=== PATIENT | male | born 1980 | race Caucasian/White ===

== ENCOUNTER 2017-08-30 10:26 | Outpatient (RCR) | payer MEDICAID, SELFPAY | END 2017-09-14 23:59 | LOC: NS 10:26 | PROVIDERS: Family Provider Family Medicine; PCP Family Medicine; Visit Provider Orthopaedic Surgery | DX: E66.01 Morbid (severe) obesity due to excess calories (principal); Z68.43 Body mass index [BMI] 50.0-59.9, adult; Z71.3 Dietary counseling and surveillance | CPT/HCPCS: 97803 ==

== ENCOUNTER 2017-09-27 11:27 | Outpatient (RCR) | payer MEDICAID, SELFPAY ==
[2017-05-26 19:30] VITALS: BMI 29.4
[2017-05-26 23:14] VITALS: BP 149/82
== END 2017-10-12 23:59 ==
LOC: NS 11:27
PROVIDERS: Family Provider Family Medicine; PCP Family Medicine; Visit Provider Orthopaedic Surgery
DX: E66.01 Morbid (severe) obesity due to excess calories (principal); Z68.43 Body mass index [BMI] 50.0-59.9, adult; Z71.3 Dietary counseling and surveillance
CPT/HCPCS: 97803

== ENCOUNTER 2017-10-17 12:22 | Outpatient (RCR) | payer MEDICAID, SELFPAY | END 2017-10-17 12:23 | LOC: NS 12:22 | PROVIDERS: Family Provider Family Medicine; PCP Family Medicine; Visit Provider Orthopaedic Surgery | DX: E66.01 Morbid (severe) obesity due to excess calories (principal); Z68.43 Body mass index [BMI] 50.0-59.9, adult; Z71.3 Dietary counseling and surveillance | CPT/HCPCS: 97803 ==

== ENCOUNTER 2018-03-16 09:00 | Outpatient (RCR) | payer MEDICAID, SELFPAY ==
--- NOTE | 2018-01-27 10:04 | HP.PTEVAL_ITS ---
Patient's Visit Information BRIDGETT CASE is a 37 year old M referred to Physical Therapy by Danna Cardona with a diagnosis of L3-4 Laminectomy with chronic footdrop. Date of Evaluation: 01/27/18 Physical Therapist: Orlin Linares PT, - Visit Plan Frequency: 2x /Week Duration: 4 Weeks Plan: Endurance training on bike or ellipical. Progressive DLS. Flexibility exercise for LEs and lumbar spine. Functional E-stim for anterior tib. Modalities prn. S/P L3-4 laminectomy on 11/25/17. No restrictions per pt. - Subjective Subjective: This 37 y/o male is referred to PT s/p L3-4 laminectomy with chronic foot drop. He had surgery at [facility] by Dr. Cardona on 11/25/17. He was discharged from formal PT in August and had continued pain with activity. This had MRI lumbar.He c/o no pain but continued weakness in the R LE, specifically in the ankle and foot. He does report numbness in the anterior R cox and great toe. He reports no current restrictions from the surgeon. He was recommended an AFO for the R LE but does not have one. Denies b/b incontinence.Patient has h/o lumbar disectomy many yearsa ago. 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 GAIT: forward flexed, R LE toed out, no toe dragging. NEURO: Dermatomes: mild impairment L4 and L5, myotomes diminished DF and GTE, DTRs 2+ except absent R S1. ROM: Lumbar flexion 50%, Extension 75%, B LF 75%. Lumbar ROM non painful. B hip ROM full and non painful. FLEXIBILITY: B Hamstrings min impairment. B Hip flexors mod impairment. MMT: quads/hams 4/5 ,hip flxion 4-/5,ankle 3+/5 right left 4/5 DF - Goals Goal 1:: Pt will demonstrate full lumbar ROM without pain to improve tolerance to self care activities. Goal Time Frame: 4-6 Weeks Goal 2:: Pt will demonstrate B SLS for 30 seconds to improve balance with gait and weight bearing activities. Goal Time Frame: 4-6 Weeks Goal 3:: Pt will demonstrate squat lift of 20# with proper mechanics to improve body mechanics and protect lumbar spine. Goal Time Frame: 4-6 Weeks Goal 4:: Pt will be independent with HEP to sustain gains made in the clinic. Goal Time Frame: 4-6 Weeks Goal 5:: Pt will report minimal limitation with standing and walking activities to improve function and QOL. Goal Time Frame: 4-6 Weeks - Rehabilitation Potential Physical Therapy Diagnosis: Pt is a 37 y/o male s/p L3-4 laminectomy performed on 11/25/[address] Cardona. He is doing well and denies pain. He does note continued weakness and numbness affected at the L4 and L5 levels. On objective exam, he has moderate loss of flexion ROM, weakness affecting ankle DF and great toe extension, and loss of LE flexibility. He is having activity restrictions that include decreased walking and lifting tolerance. This affects his participation with usual housework. Pt will benefit from skilled PT to address the mentioned impairments to maximize functional potential. Rehabilitation Potential: Good - Anticipated Interventions Patient/Client Instruction: Educate patient on: Condition, Plan of Care For the Purpose of:: To increase ROM, To improve ability to perform ADL's, To increase tolerance to activity/condition/position, To improve ability of physical actions for home/community/work/leisure, To increase flexibility/ROM, To improve endurance, To improve balance, To reduce risk of recurrence, To improve health and function, To improve self management Therapeutic Exercise to Include: Strength training, Endurance training, Balance training, Body mechanics, Postural training, Flexibilty training, Gait and locomotor training, Active ROM, Dynamic Lumbar Stabilization For the Purpose of:: To increase ROM, To improve muscle performance and motor function, To increase tolerance to activity/condition/position, To improve ability of physical actions for home/community/work/leisure, To decrease soft tissue restriction, To increase flexibility/ROM, To improve endurance, To improve balance, To improve safety with gait, To reduce risk of recurrence, To improve health and function Functional electric stimulation: Yes TENS: Yes IF ES: Yes Other electric stimulation: Yes Cryotherapy (ice pack, ice massage): Yes Thermo therapy (hot pack): Yes Ultrasound (thermal/non thermal): Yes For the Purpose of:: To increase ROM, To improve muscle performance and motor function, To increase tolerance to activity/condition/position, To improve ability of physical actions for home/community/work/leisure, To improve gait and locomotor functions, To increase flexibility/ROM, To improve safety with gait, To reduce risk of recurrence, To improve health and function Thank you for the opportunity to evaluate your patient. For Medicare and Medicare HMO plans, please review the plan of care and approve it. It will need to be FAXED BACK to us at [phone] for Medicare purposes. Please let me know if there are questions or concerns regarding this plan of care. Physician Signature: Date:
--- NOTE | 2018-07-17 11:08 | HP.PTDCSUM ---
HP - PT D/C Summary It has been my pleasure to treat BRIDGETT CASE under orders from Danna Cardona, for the diagnosis of L3-4 Laminectomy with chronic footdrop for a total of 9 visit(s). Discharge Date: Please see the following information for a summary of their discharge status. - Subjective Subjective: Doing good except right knee is sore. C/O difficulty with lifting leg in car. Tired id in leg and ankle is weak - Pain Right Knee Pain Intensity (Out of 10): 2 - Overall Improvement % Improvement: 70 - Objective Objective/Function: POSTURE: WFL. GAIT: ambulated with improved rhianna heel strike toe off. PROPRIOCEPTION: right leg ankle. LUMBAR ROM: flexion min loss ,extension WFL ,side glides min. MMT: 4/5 quads/hams ,hip 4/5 ankle right 3+/5. SLR - Goals Goal 1:: Pt will demonstrate full lumbar ROM without pain to improve tolerance to self care activities. Goal 2:: Pt will demonstrate B SLS for 30 seconds to improve balance with gait and weight bearing activities. Goal 3:: Pt will demonstrate squat lift of 20# with proper mechanics to improve body mechanics and protect lumbar spine. Goal 4:: Pt will be independent with HEP to sustain gains made in the clinic. Goal 5:: Pt will report minimal limitation with standing and walking activities to improve function and QOL. - Plan Plan: RTD - D/C Information If there are questions or concerns regarding this patient's physical therapy, please feel free to call me at [phone]. Thank you for the referral of this patient. Sincerely, Orlin Linares, PT,
== END 2018-03-16 19:00 | disposition home or self-care (01) ==
LOC: PT 09:00
PROVIDERS: Family Provider Family Medicine; PCP Family Medicine; Visit Provider Orthopaedic Surgery
DX: Z98.890 Other specified postprocedural states (principal); M21.379 Foot drop, unspecified foot
CPT/HCPCS: 97014; 97110; 97162; G0283

== ENCOUNTER → 2018-04-19 20:18 | Outpatient (CLI) | payer MEDICAID, SELFPAY | PROVIDERS: Family Provider Family Medicine; PCP Family Medicine; Visit Provider Clinical Nurse Specialist Acute Care | DX: G47.33 Obstructive sleep apnea (adult) (pediatric) (principal) | CPT/HCPCS: 95811 ==

== ENCOUNTER → 2018-05-26 09:31 | Outpatient (CLI) | payer MEDICAID, SELFPAY ==
[2018-05-26 11:14] LABS: Anion Gap 7 (5-15); BUN 9 mg/dL (7-18); Calcium,Total 9.2 mg/dL (8.5-10.1); Chloride 106 mmol/L (98-107); Cholesterol 206 mg/dL (200); EST Glomerular Filtration Rate 89 mL/min (>60); Est Glom Filt Rate - Afr Amer 107 mL/min (>60); Glucose 98 mg/dL (74-106); High Density Lipoprotein 42 mg/dL; PSA,Total - Annual Screen 0.26 ng/mL (0.00-4.00); Potassium 4.1 mmol/L (3.5-5.1); Sodium Level 142 mmol/L (136-145); Triglycerides 185 mg/dL; Very Low Density Lipoprotein 37 mg/dL (5-40)
== END ==
PROVIDERS: Family Provider Family Medicine; PCP Family Medicine; Referring Provider Family Medicine; Visit Provider Family Medicine
DX: Z00.00 Encounter for general adult medical examination without abnormal findings (principal); E29.1 Testicular hypofunction; E66.9 Obesity, unspecified; Z12.5 Encounter for screening for malignant neoplasm of prostate
CPT/HCPCS: 36415; 80048; 80061; 84153; 84403; G0103

== ENCOUNTER → 2019-06-18 06:06 | Outpatient (CLI) | payer MEDICAID, SELFPAY ==
[2019-06-18 07:26] LABS: Hematocrit 47.1 % (40-54); Hemoglobin 15.2 g/dL (13.0-16.5); Mean Corp Hgb Conc 32.3 g/dL (32-36); Mean Corpuscular Hgb 30.5 pg (27.0-32.0); Mean Corpuscular Volume 94.6 fL (80-94); Mean Platelet Vol. 13.6 fl (6.2-12.0); Platelet Count 157 K/mm3 (150-450); RBC Distribution Width CV 13.2 % (11.6-14.6); RBC Distribution Width SD 45.7 fl (35.1-43.9); Red Blood Count 4.98 M/mm3 (4.6-6.2); White Blood Count 7.2 K/mm3 (4.4-11.0)
[2019-06-18 08:35] LABS: AST(SGOT) 17 U/L (15-37); Alanine Aminotransfer ALT/SGPT 25 U/L (16-61); Albumin, Serum 3.9 g/dL (3.2-5.0); Alkaline Phosphatase 88 U/L (45-117); Anion Gap 10 (5-15); BUN 11 mg/dL (7-18); BUN/Creat Ratio 12.8 RATIO (10-20); Calcium,Total 9.3 mg/dL (8.5-10.1); Chloride 105 mmol/L (98-107); Creatinine, Serum 0.86 mg/dL (0.70-1.30); EST Glomerular Filtration Rate 105 mL/min (>60); Est Glom Filt Rate - Afr Amer 127 mL/min (>60); Ferritin 200 ng/mL (26-388); Glucose 91 mg/dL (74-106); Iron 59 ug/dL (65-175); Magnesium 2.3 mg/dL (1.6-2.6); Potassium 3.5 mmol/L (3.5-5.1); Protein, Total 7.9 g/dL (6.4-8.2); Sodium Level 140 mmol/L (136-145)
[2019-06-18 09:00] LABS: Vitamin B12 1327 pg/mL (211-911)
[2019-06-20 11:56] LABS: Zinc, Plasma or Serum 84 ug/dL (56-134)
== END ==
PROVIDERS: Family Provider Family Medicine; PCP Family Medicine; Referring Provider Surgery; Visit Provider Surgery
DX: E61.7 Deficiency of multiple nutrient elements (principal); K90.9 Intestinal malabsorption, unspecified; E66.01 Morbid (severe) obesity due to excess calories
CPT/HCPCS: 36415; 80053; 82607; 82728; 82746; 83540; 83735; 84630; 85027

== ENCOUNTER 2019-06-21 15:21 | Emergency (ER) | payer MEDICAID, SELFPAY ==
[2019-06-21 15:22] VITALS: BP 156/86; PULSE 74; RESP 16; TEMP 36.3; O2SAT 100; BMI 38.9
--- NOTE | 2019-06-21 15:48 | ED.DCSUM_ITS ---
History of Present Illness Chief Complaint: Flank Pain Informant: Patient - Abdominal Pain/Flank Pain Onset: Days - 4 Context: Gradual Onset Timing: Continuous, Waxes and wanes Location: Right Flank Current Severity: Severe Maximum Severity: Severe Worsened by: Nothing Relieved by: Nothing - Nausea/Vomiting/Emesis GI Symptom: Nausea, Vomiting - Diarrhea/Melena/Hematochezia GI Symptom: Negative for: Diarrhea, Melena, Hematochezia Associated Symptoms: Negative for: Dysuria, Frequency, Hematuria, Urgency Narrative: Patient with gradual onset of right flank pain, started in his low back, moved around to the side, now it is down to his groin and radiating into his scrotum. Never had this before. No history of kidney stones. Has had prior appendectomy and gastric bypass, his last surgery was about 4 months ago. - Past Medical History (1) Obesity Status: Chronic Past Medical History - Allergies and Home Meds Allergies/Adverse Reactions: Allergies No Known Allergies Allergy (Verified 06/27/18 09:46) Primary Care Physician: Vu Pisano MD [STAFF PHYSICIAN] - 1 Week if not improving Surgical History: appendectomy, - - Knee, back, gastric bypass Lives: Spouse/ Significant Other Smoking Status: Never smoker Drugs: None Review of Systems General: Denies: Chills, Fever, Sweats Eyes: Denies: Visual changes - bilaterally, Diplopia ENT: Denies: Rhinorrhea, Sore throat Cardiovascular: Denies: Chest pain, Palpitations Respiratory: Denies: Dyspnea, Cough, Dyspnea on exertion Gastrointestinal: Reports: Abdominal pain, Nausea, Vomiting. Denies: Diarrhea, Melena, Hematochezia Genitourinary: Denies: Dysuria, Hematuria, Frequency Musculoskeletal: Reports: Back pain. Denies: Swelling, Extremity Pain Skin: Denies: Rash, Wounds Neurological: Denies: Headache, Weakness, Numbness Physical Exam Vital Signs/Narrative: Vital Signs Temp Pulse Resp BP Pulse Ox 06/21/19 15:22 97.4 F L 74 16 156/86 H 100 Inital Vital Signs reviewed: Yes General: Well nourished, Well developed, No Acute Distress Head: Normocephalic, Atraumatic Eyes: Perrl, EOMI ENT: Moist mucous membranes, No rhinorrhea Neck: Supple, Nontender Cardiovascular: Regular rate, Regular rhythm, No murmurs Respiratory: No distress, CTA bilaterally, Chest nontender Abdomen: Soft, Nontender, Nondistended, Normal bowel sounds, No masses. Negative for: Pulsatile mass Back: Normal Inspection, CVA tenderness - Right side only. No rash. Extremities: Nontender, No edema Skin: Normal color, No rash, No Trauma Neurological: Alert, Oriented x3, Cranial nerves II-XII grossly intact, Normal Strength, Normal Sensation, Normal Gait Psychological: Normal affect, Normal Mood Diagnostic/Tx/Re-eval Laboratory Results 06/21/19 06/21/19 06/21/19 16:14 16:14 16:14 WBC 11.8 H RBC 5.21 Hgb 15.7 Hct 49.1 MCV 94.2 H MCH 30.1 MCHC 32.0 RDW Std Deviation 45.4 H RDW Coeff of Mirza 13.1 Plt Count 155 MPV 12.7 H Immature Gran % (Auto) 0.400 Neut % (Auto) 83.7 H Lymph % (Auto) 9.4 L [place] % (Auto) 5.9 Eos % (Auto) 0.3 Baso % (Auto) 0.3 Absolute Neuts (auto) 9.8 H Absolute Lymphs (auto) 1.11 Nucleated RBC % 0 Sodium 139 Potassium 3.7 Chloride 104 Carbon Dioxide 26.0 Anion Gap 9 BUN 11 Creatinine 0.95 Estim Creat Clear Calc 116.81 Est GFR (MDRD) Af Amer 113 Est GFR (MDRD) Non-Af 93 BUN/Creatinine Ratio 11.6 Glucose 110 H Calcium 9.8 Urine Color Yellow Urine Clarity Sl. Cloudy Urine pH 7.0 Ur Specific [place] 1.015 Urine Protein 15 H Urine Glucose (UA) Normal Urine Ketones 50 H Urine Occult Blood 50 H Urine Nitrite Negative Urine Bilirubin Negative Urine Urobilinogen Normal Ur Leukocyte Esterase Negative Urine RBC 0-5 SEEN Urine WBC 0 SEEN Ur Squamous Epith Cells 0-5 SEEN Urine Bacteria 0 SEEN Urine Mucus 0 SEEN - Medical Decision Making Patient was treated with Toradol, morphine, Zofran. He feels much better, pain is resolved. With his symptoms down into the scrotum and right groin, he likely has a UVJ stone that is small enough to pass. I do not feel he needs a CT at this time. That might be indicated if he fails expectant management which we discussed at length. He is comfortable with that plan. ED Disposition - Plan for ED Patient: Disposition: Home or Assisted Living Diagnosis: Urolithiasis, Renal colic on right side Instructions: Treating Kidney Stones: Expectant Therapy, KIDNEY STONE w/ Colic Prescriptions: Oxycodone HCl/Acetaminophen [Percocet 5/325] 1 tab PO Q6H PRN PRN 3 Days #12 tab PRN Reason: Pain Prescription Printed Ondansetron [Zofran] 8 mg PO Q8H PRN PRN #12 tab PRN Reason: Nausea Prescription Printed Referrals: Vu Pisano MD [STAFF PHYSICIAN] - 1 Week if not improving
[2019-06-21] MEDS: Ondansetron 4 MG/2 ML Vial IV (16:10)
[2019-06-21] MEDS: Ketorolac 30 MG/ML Syringe IV (16:11)
[2019-06-21] MEDS: Morphine 4 MG/ML Syringe IV (16:12)
[2019-06-21 16:24] LABS: Bacteria 0 SEEN /hpf (None Seen); Mucous, Urine 0 SEEN /hpf (<or=2+); White Blood Cells 0 SEEN /hpf (0-5)
[2019-06-21 16:25] LABS: Absolute Lymphocyte Count 1.11 X10^3/uL (0.83-4.51); Absolute Neutrophil Count 9.8 X10^3/uL (2.0-7.7); Basophil# 0.03 X10^3/uL; Basophil% 0.3 % (0-1); Eosinophil# 0.04 X10^3/uL; Eosinophils% 0.3 % (0-5); Hematocrit 49.1 % (40-54); Hemoglobin 15.7 g/dL (13.0-16.5); Lymphocyte # 1.11 X10^3/ul (4.0); Lymphocyte % 9.4 % (19-41); Mean Corpuscular Hgb 30.1 pg (27.0-32.0); Mean Corpuscular Volume 94.2 fL (80-94); Mean Platelet Vol. 12.7 fl (6.2-12.0); Monocyte# 0.69 X10^3/uL; Monocyte% 5.9 % (0-10); NRBC Flagged by Analyzer 0 % (0-5); Neutrophil # 9.84 X10^3/uL (2.7-7.7); Neutrophil % 83.7 % (47-70); POSITIVE MORPHOLOGY YES; Platelet Count 155 K/mm3 (150-450); RBC Distribution Width CV 13.1 % (11.6-14.6); RBC Distribution Width SD 45.4 fl (35.1-43.9); Red Blood Count 5.21 M/mm3 (4.6-6.2); White Blood Count 11.8 K/mm3 (4.4-11.0)
[2019-06-21 16:26] LABS: Color, Urine Yellow (Yellow); Glucose, Dipstick Normal (Normal); Ketone-Dipstick 50 mg/dl (Negative); Leukocyte Esterase-Dipstick Negative /ul (Negative); Nitrite-Dipstick Negative (Negative); Occult Blood-Urine 50 /ul (Negative); Protein-Dipstick 15 mg/dl (Negative); Specific Gravity, Urine 1.015 (1.002-1.030); Urine Bilirubin Dipstick Negative (Negative); Urine Clarity Sl. Cloudy (Clear); Urine Urobilinogen Normal (Normal)
[2019-06-21 16:33] LABS: Red Blood Cells-Urine 0-5 SEEN /hpf (0-5); Squamous Epithelial Cells - UA 0-5 SEEN /hpf (0-5)
[2019-06-21 16:38] LABS: Anion Gap 9 (5-15); BUN 11 mg/dL (7-18); BUN/Creat Ratio 11.6 RATIO (10-20); Calcium,Total 9.8 mg/dL (8.5-10.1); Chloride 104 mmol/L (98-107); Creatinine, Serum 0.95 mg/dL (0.70-1.30); EST Glomerular Filtration Rate 93 mL/min (>60); Est Glom Filt Rate - Afr Amer 113 mL/min (>60); Estimated Creatinine Clearance 116.81 ml/min; Glucose 110 mg/dL (74-106); Potassium 3.7 mmol/L (3.5-5.1); Sodium Level 139 mmol/L (136-145)
[2019-06-21 16:44] LABS: Differential Indicated SCAN CRITERIA MET
[2019-06-21 17:33] LABS: Differential Comment SCANNED
[2019-06-21 17:35] VITALS: RESP 16
[2019-06-21 18:17] VITALS: BP 143/78; PULSE 63; RESP 18
== END 2019-06-21 18:18 | disposition home or self-care (01) ==
PROVIDERS: Emergency Provider Emergency Medicine; Family Provider Family Medicine; PCP Family Medicine
DX: N20.0 Calculus of kidney (principal); E66.9 Obesity, unspecified; Z98.84 Bariatric surgery status
CPT/HCPCS: 80048; 81001; 85025; 96374; 96375; 99283; A4216; J2405

== ENCOUNTER 2019-06-23 22:54 | Emergency (ER) | payer MEDICAID, SELFPAY ==
[2019-06-23 22:55] VITALS: BP 158/92; PULSE 94; RESP 17; TEMP 37.6; O2SAT 97; BMI 39.4
--- NOTE | 2019-06-23 23:10 | ED.VIS.GEN ---
History of Present Illness Chief Complaint: Flank Pain Detail of Chief Complaint: Pain is returning with for next dose of medicine to Informant: Patient, Significant Other Onset: Days Context: Sudden Onset Timing: Continuous, Waxes and wanes Quality: Pain flank Location: Right Current Severity: Moderate Maximum Severity: Severe Worsened by: Nothing Relieved by: Initially Percocet Associated Symptoms: Nausea Narrative: Patient was seen on June [address] Pope. He was diagnosed with obstructing right ureteral stone. He was discharged with opiate analgesia. He presents because pain is returning prior to time for next dose of opiate analgesia. He does report nausea. He denies fever, chills night sweats. He denies dysuria or hematuria. He does have urgency. He cannot find position of comfort. Prior similar symptoms: Yes Recent Illness/Hospitalization: Yes - Past Medical History (1) Herniated lumbar intervertebral disc Status: Acute (2) Obesity Status: Chronic Past Medical History - Allergies and Home Meds Allergies/Adverse Reactions: Allergies No Known Allergies Allergy (Verified 06/27/18 09:46) Primary Care Physician: Fritz Murray MD [Primary Care Provider] - Surgical History: appendectomy, - - Knee, back, gastric bypass Lives: Spouse/ Significant Other Smoking Status: Never smoker Alcohol: None Drugs: None Review of Systems General: Denies: Chills, Fever, Malaise, Subjective Eyes: Denies: Visual changes - bilaterally, Blurred Vision - bilaterally Cardiovascular: Denies: Chest pain, Palpitations Gastrointestinal: Reports: Nausea. Denies: Abdominal pain, Vomiting, Diarrhea, Constipation, Melena, Hematochezia Genitourinary: Reports: Frequency. Denies: Dysuria, Hematuria Musculoskeletal: Reports: Back pain. Denies: Myalgias, Arthralgias, Neck pain, Swelling, Extremity Pain Skin: Denies: Rash Hematologic: Denies: Easy bruising, Easy bleeding Physical Exam Vital Signs/Narrative: Vital Signs Temp Pulse Resp BP Pulse Ox 06/23/19 22:55 99.7 F H 94 17 158/92 H 97 Inital Vital Signs reviewed: Yes General: Well nourished, Well developed, Obese, No Acute Distress Head: Normocephalic, Atraumatic Eyes: Perrl, EOMI. Negative for: Pale conjunctiva, Scleral icterus ENT: Moist mucous membranes, No rhinorrhea, TM's clear Cardiovascular: Regular rate, Regular rhythm, No murmurs Respiratory: No distress, CTA bilaterally, Chest nontender Abdomen: Soft, Nontender, Nondistended, Normal bowel sounds Back: Nontender, Normal Inspection. Negative for: CVA tenderness Extremities: Nontender, No edema Skin: Normal color, No rash Neurological: Alert, Oriented x3, Cranial nerves II-XII grossly intact, Normal Strength, Normal Sensation Psychological: Normal affect, Normal Mood Diagnostic/Tx/Re-eval - Medical Decision Making He was established. Patient was treated with 4 mg of Zofran IV push, Toradol IV push and morphine IV push. He is not asking for prescription of opiate analgesia. He requesting something to control the pain. Patient was reassessed at 2335. He is pain-free. Will discharge to home. A prescription for NSAIDs was not given since he is status post gastric bypass surgery. ED Disposition - Plan for ED Patient: Disposition: Home or Assisted Living Diagnosis: Obstructing right ureteral stone Instructions: KIDNEY STONE w/ Colic Referrals: Fritz Murray MD [Primary Care Provider] - Vu Pisano MD [STAFF PHYSICIAN] - 3-5 Days if not improving
[2019-06-23] MEDS: Ondansetron 4 MG/2 ML Vial IV (23:21)
[2019-06-23] MEDS: Ketorolac 30 MG/ML Syringe IV (23:24)
[2019-06-23] MEDS: morphine 8 MG/ML Syringe IV (23:26)
[2019-06-23 23:58] VITALS: BP 130/84; PULSE 82; RESP 15; O2SAT 94
== END 2019-06-23 23:58 | disposition home or self-care (01) ==
PROVIDERS: Emergency Provider Emergency Medicine; Family Provider Family Medicine; PCP Family Medicine
DX: N13.2 Hydronephrosis with renal and ureteral calculous obstruction (principal); E66.9 Obesity, unspecified; M51.26 Other intervertebral disc displacement, lumbar region; Z98.84 Bariatric surgery status
CPT/HCPCS: 96374; 96375; 99283; A4216; J2405

== ENCOUNTER → 2019-07-09 11:02 | Outpatient (CLI) | payer MEDICAID, SELFPAY ==
[2019-06-23 22:55] VITALS: BMI 39.4
--- NOTE | 2019-07-09 11:04 | US_ITS ---
STUDY: SCROTUM ULTRASOUND REASON FOR EXAM: Male, 39 years old. Right-sided epididymitis. TECHNIQUE: Ultrasound evaluation of the scrotum was performed with color Doppler and static franklin-scale imaging. COMPARISON: None. FINDINGS: RIGHT TESTICLE INTRATESTICULAR: There is a normal size of the right testicle. The right testicle measures 4.0 x 2.4 x 2.8 cm. There is a homogenous echotexture. There is normal arterial and normal venous vascularity. There is no demonstrated right testicular mass or cyst. EXTRATESTICULAR: The epididymis is normal in size. The epididymis head measures 0.8 x 0.9 x 1.0 cm. There is normal vascularity of the epididymis. There is no demonstrated epididymal cystic structure. There is no demonstrated hydrocele. There is no demonstrated varicocele. There is no demonstrated extratesticular mass or cyst. The right scrotal wall measures 0.6 cm. LEFT TESTICLE INTRATESTICULAR: There is a normal size of the left testicle. The left testicle measures 4.5 x 3.2 x 2.6 cm. There is a homogenous echotexture. There is normal arterial and normal venous vascularity. There is no demonstrated left testicular mass or cyst. EXTRATESTICULAR: The epididymis is normal in size. The epididymis head measures 0.9 x 1.4 x 1.0 cm. There is normal vascularity of the epididymis. There is no demonstrated epididymal cystic structure. There is no demonstrated hydrocele. There is no demonstrated varicocele. There is no demonstrated extratesticular mass or cyst. The left scrotal wall measures 0.7 cm. US/Testicular with Arterial Flow IMPRESSION: Normal bilateral testicular ultrasound. Normal bilateral and symmetrical testicular color flow noted. Electronically Signed: Lu Cordero MD at 1:14 EST , Service support ,
== END ==
PROVIDERS: Family Provider Family Medicine; PCP Family Medicine; Referring Provider Family Medicine; Visit Provider Family Medicine
DX: N45.1 Epididymitis (principal)
CPT/HCPCS: 76870; 93976

== ENCOUNTER → 2019-10-30 08:25 | Outpatient (CLI) | payer MEDICAID, SELFPAY ==
[2019-10-30 09:15] LABS: Hematocrit 45.7 % (40-54); Hemoglobin 14.6 g/dL (13.0-16.5); Mean Corp Hgb Conc 31.9 g/dL (32-36); Mean Corpuscular Hgb 30.2 pg (27.0-32.0); Mean Corpuscular Volume 94.4 fL (80-94); Mean Platelet Vol. 11.9 fl (6.2-12.0); Platelet Count 163 K/mm3 (150-450); RBC Distribution Width CV 13.5 % (11.6-14.6); RBC Distribution Width SD 46.9 fl (35.1-43.9); Red Blood Count 4.84 M/mm3 (4.6-6.2); White Blood Count 7.8 K/mm3 (4.4-11.0)
[2019-10-30 09:42] LABS: Vitamin B12 1026 pg/mL (211-911); Vitamin D,25 Hydroxy 50.4 ng/mL
[2019-10-30 10:26] LABS: AST(SGOT) 21 U/L (15-37); Alanine Aminotransfer ALT/SGPT 31 U/L (16-61); Albumin, Serum 3.9 g/dL (3.2-5.0); Alkaline Phosphatase 85 U/L (45-117); Anion Gap 4 (5-15); BUN 15 mg/dL (7-18); BUN/Creat Ratio 16.7 RATIO (10-20); Calcium,Total 9.2 mg/dL (8.5-10.1); Chloride 108 mmol/L (98-107); Cholesterol 160 mg/dL (200); EST Glomerular Filtration Rate 100 mL/min (>60); Est Glom Filt Rate - Afr Amer 121 mL/min (>60); Ferritin 265 ng/mL (26-388); Globulin 3.8 g/dL (2.2-4.2); Glucose 97 mg/dL (74-106); High Density Lipoprotein 51 mg/dL; Iron 97 ug/dL (65-175); Magnesium 2.1 mg/dL (1.6-2.6); Potassium 4.6 mmol/L (3.5-5.1); Protein, Total 7.7 g/dL (6.4-8.2); Sodium Level 139 mmol/L (136-145); Triglycerides 102 mg/dL; Very Low Density Lipoprotein 20 mg/dL (5-40)
[2019-11-01 11:30] LABS: Zinc, Plasma or Serum 88 ug/dL (56-134)
== END ==
PROVIDERS: PCP Family Medicine; Referring Provider Registered Nurse Nephrology; Visit Provider Registered Nurse Nephrology
DX: E61.1 Iron deficiency (principal); E61.7 Deficiency of multiple nutrient elements; E55.9 Vitamin D deficiency, unspecified; K90.9 Intestinal malabsorption, unspecified; D21.9 Benign neoplasm of connective and other soft tissue, unspecified; E66.01 Morbid (severe) obesity due to excess calories; E78.5 Hyperlipidemia, unspecified
CPT/HCPCS: 36415; 80053; 80061; 82306; 82607; 82728; 82746; 83540; 83735; 84630; 85027

== ENCOUNTER → 2020-06-13 08:34 | Outpatient (CLI) | payer OTHER, SELFPAY ==
[2020-06-13 09:39] LABS: Absolute Lymphocyte Count 2.31 X10^3/uL (0.83-4.51); Absolute Neutrophil Count 4.5 X10^3/uL (2.0-7.7); Basophil# 0.04 X10^3/uL; Basophil% 0.5 % (0-1); Eosinophil# 0.26 X10^3/uL; Eosinophils% 3.3 % (0-5); Hematocrit 45.8 % (40-54); Hemoglobin 14.9 g/dL (13.0-16.5); Lymphocyte # 2.31 X10^3/ul (4.0); Lymphocyte % 29.7 % (19-41); Mean Corp Hgb Conc 32.5 g/dL (32-36); Mean Corpuscular Hgb 30.5 pg (27.0-32.0); Mean Corpuscular Volume 93.7 fL (80-94); Mean Platelet Vol. 11.7 fl (6.2-12.0); NRBC Flagged by Analyzer 0 % (0-5); Neutrophil # 4.45 X10^3/uL (2.7-7.7); Neutrophil % 57.1 % (47-70); Platelet Count 239 K/mm3 (150-450); RBC Distribution Width CV 12.8 % (11.6-14.6); RBC Distribution Width SD 43.6 fl (35.1-43.9); Red Blood Count 4.89 M/mm3 (4.6-6.2); White Blood Count 7.8 K/mm3 (4.4-11.0)
[2020-06-13 10:13] LABS: ALB/GLOB Ratio 0.9 RATIO (0.9-2.4); AST(SGOT) 16 U/L (15-37); Alanine Aminotransfer ALT/SGPT 28 U/L (16-61); Albumin, Serum 3.8 g/dL (3.2-5.0); Alkaline Phosphatase 80 U/L (45-117); Anion Gap 6 (5-15); BUN 12 mg/dL (7-18); BUN/Creat Ratio 13.6 RATIO (10-20); Calcium,Total 9.5 mg/dL (8.5-10.1); Chloride 109 mmol/L (98-107); Creatinine, Serum 0.88 mg/dL (0.70-1.30); EST Glomerular Filtration Rate 101 mL/min (>60); Est Glom Filt Rate - Afr Amer 122 mL/min (>60); Globulin 4.1 g/dL (2.2-4.2); Glucose 96 mg/dL (74-106); Lipase 73 U/L (73-393); Potassium 3.9 mmol/L (3.5-5.1); Protein, Total 7.9 g/dL (6.4-8.2); Sodium Level 140 mmol/L (136-145)
== END ==
PROVIDERS: PCP Family Medicine; Referring Provider Family Medicine; Visit Provider Family Medicine
DX: R10.9 Unspecified abdominal pain (principal)
CPT/HCPCS: 36415; 80053; 83690; 85025

== ENCOUNTER → 2020-06-27 07:59 | Outpatient (CLI) | payer OTHER, MEDICAID, SELFPAY ==
[2020-06-27 09:08] LABS: Hematocrit 44.6 % (40-54); Hemoglobin 14.2 g/dL (13.0-16.5); Mean Corp Hgb Conc 31.8 g/dL (32-36); Mean Corpuscular Hgb 30.5 pg (27.0-32.0); Mean Corpuscular Volume 95.7 fL (80-94); Mean Platelet Vol. 12.1 fl (6.2-12.0); Platelet Count 188 K/mm3 (150-450); RBC Distribution Width SD 48.7 fl (35.1-43.9); Red Blood Count 4.66 M/mm3 (4.6-6.2); White Blood Count 6.9 K/mm3 (4.4-11.0)
[2020-06-27 10:11] LABS: Vitamin B12 951 pg/mL (211-911); Vitamin D,25 Hydroxy 56.9 ng/mL
[2020-06-27 10:31] LABS: ALB/GLOB Ratio 0.9 RATIO (0.9-2.4); AST(SGOT) 17 U/L (15-37); Alanine Aminotransfer ALT/SGPT 25 U/L (16-61); Albumin, Serum 3.7 g/dL (3.2-5.0); Alkaline Phosphatase 76 U/L (45-117); Anion Gap 3 (5-15); BUN 10 mg/dL (7-18); BUN/Creat Ratio 10.3 RATIO (10-20); Calcium,Total 9.6 mg/dL (8.5-10.1); Chloride 108 mmol/L (98-107); Cholesterol 191 mg/dL (200); Creatinine, Serum 0.97 mg/dL (0.70-1.30); EST Glomerular Filtration Rate 90 mL/min (>60); Est Glom Filt Rate - Afr Amer 109 mL/min (>60); Ferritin 377 ng/mL (26-388); Glucose 93 mg/dL (74-106); High Density Lipoprotein 54 mg/dL; Iron 85 ug/dL (65-175); Magnesium 2.3 mg/dL (1.6-2.6); Protein, Total 7.7 g/dL (6.4-8.2); Sodium Level 141 mmol/L (136-145); Triglycerides 116 mg/dL; Very Low Density Lipoprotein 23 mg/dL (5-40)
[2020-07-04 20:08] LABS: Vitamin B1, Thiamine 128.4 nmol/L (66.5-200.0)
[2020-07-04 21:55] LABS: Zinc, Plasma or Serum 70 ug/dL (56-134)
== END ==
PROVIDERS: PCP Family Medicine; Referring Provider Registered Nurse Nephrology; Visit Provider Registered Nurse Nephrology
DX: E61.1 Iron deficiency (principal); K90.9 Intestinal malabsorption, unspecified; E61.7 Deficiency of multiple nutrient elements; E87.6 Hypokalemia; E61.2 Magnesium deficiency; E66.01 Morbid (severe) obesity due to excess calories; Z68.42 Body mass index [BMI] 45.0-49.9, adult
CPT/HCPCS: 36415; 80053; 80061; 82306; 82607; 82728; 82746; 83540; 83735; 84425; 84630; 85027

== ENCOUNTER → 2020-11-21 10:07 | Outpatient (CLI) | payer OTHER, MEDICAID, SELFPAY ==
--- NOTE | 2020-11-21 10:11 | RAD_ITS ---
STUDY: X-RAY - LEFT KNEE REASON FOR EXAM: Left knee pain for about 3 weeks, twisting injury yesterday. TECHNIQUE: 4 view(s) of the knee. COMPARISON: None. FINDINGS: There are postoperative changes of the distal femur proximal tibia from anterior cruciate ligament reconstruction. Normal proximal tibiofibular articulation. Normal medial femorotibial compartment. Normal lateral femorotibial compartment. Normal patellofemoral articulation. There is an intra-articular body in the intercondylar notch. RAD/Knee 4 or More Views IMPRESSION: Intra-articular body in the intercondylar notch. Postoperative changes from anterior cruciate ligament reconstruction. Electronically Signed: Natan Singh MD at 10:57 EDT Tel , Service support ,
== END ==
PROVIDERS: PCP Family Medicine; Referring Provider Family Medicine; Visit Provider Family Medicine
DX: M25.562 Pain in left knee (principal)
CPT/HCPCS: 73564

== ENCOUNTER → 2020-12-24 11:05 | Outpatient (CLI) | payer OTHER, MEDICAID, SELFPAY ==
[2020-12-12 08:33] VITALS: BMI 39.4
--- NOTE | 2020-12-24 11:06 | MRI_ITS ---
STUDY: MRI LEFT KNEE REASON FOR EXAM: Medial knee pain for 2 months, no specific injury, ACL repair in 1995. TECHNIQUE: Standardized fat and water weighted pulse sequences were obtained in all 3 orthogonal planes. COMPARISON: Radiographs 11/21/2020. FINDINGS: There is a horizontal tear of the posterior horn/posterior body of the medial meniscus (proton-density sagittal images 9-14; proton-density coronal images 13, 14). There is a healed osteochondral lesion of the medial femoral condyle (proton-density coronal images 14-17). There is slight subchondral bone edema of the medial tibial plateau, a stress phenomenon. There is mild periligamentous inflammation of the medial collateral ligament (T2 coronal image 15). Normal distal semimembranosus, gracilis and semitendinosus tendons. Normal lateral meniscus. Normal hyaline cartilage of the lateral femorotibial compartment. Normal lateral femoral condyle and tibial plateau. Normal proximal tibiofibular articulation. Normal lateral collateral (fibular) ligament. Normal popliteus tendon. Normal biceps femoris tendon. The anterior cruciate ligament graft is intact (T2 sagittal image 14). Normal posterior cruciate ligament (PCL). Normal congruent patellofemoral articulation. There is intermediate grade chondromalacia of the patellofemoral compartment (T2 sagittal image 15). Normal medial and lateral patellar retinaculum. Normal visualized quadriceps tendon. There are postoperative changes of the patellar tendon. There is postoperative scarring in Hoffa''s fat pad. There is no joint effusion. There is an intra-articular body anterior to the posterior cruciate ligament (proton-density sagittal image 21; T2 axial image 20) measuring 0.8 cm in greatest dimension. There is a popliteal cyst measuring 5.7 cm in length (T2 sagittal images 5-8). There are postoperative changes of the distal femur and proximal tibia from anterior cruciate ligament reconstruction. MRI/Lower Ext Joint Only (Routine) IMPRESSION: Medial meniscal tear. Intact anterior cruciate ligament graft. Chondromalacia of the patellofemoral compartment. Mild periligamentous inflammation of the medial collateral ligament. Intra-articular body in the posterior intercondylar notch. Healed osteochondral lesion of the medial femoral condyle. Popliteal cyst. Electronically Signed: Natan Singh MD at 12:21 EDT Tel , Service support ,
== END ==
PROVIDERS: PCP Family Medicine; Referring Provider Orthopaedic Surgery; Visit Provider Orthopaedic Surgery
DX: M25.562 Pain in left knee (principal)
CPT/HCPCS: 73721

== ENCOUNTER 2021-11-30 21:11 | Outpatient (CLI) | payer OTHER, MEDICAID, SELFPAY | END 2021-11-30 23:59 | disposition home or self-care (01) | PROVIDERS: PCP Family Medicine; Referring Provider Nurse Practitioner Acute Care; Visit Provider Nurse Practitioner Acute Care | DX: G47.33 Obstructive sleep apnea (adult) (pediatric) (principal) | CPT/HCPCS: 95811 ==

== ENCOUNTER 2021-12-01 14:51 | Outpatient (CLI) | payer OTHER, MEDICAID, SELFPAY ==
[2021-12-01 16:36] LABS: Absolute Lymphocyte Count 2.85 X10^3/uL (0.83-4.51); Absolute Neutrophil Count 5.2 X10^3/uL (2.0-7.7); Basophil# 0.05 X10^3/uL; Basophil% 0.5 % (0-1); Eosinophil# 0.44 X10^3/uL; Eosinophils% 4.7 % (0-5); Hematocrit 47.5 % (40-54); Hemoglobin 15.5 g/dL (13.0-16.5); Lymphocyte # 2.85 X10^3/ul (0.83-4.51); Lymphocyte % 30.2 % (19-41); Mean Corp Hgb Conc 32.6 g/dL (32-36); Mean Corpuscular Hgb 30.6 pg (27.0-32.0); Mean Corpuscular Volume 93.9 fL (80-94); Mean Platelet Vol. 12.6 fl (6.2-12.0); Monocyte# 0.86 X10^3/uL; Monocyte% 9.1 % (0-10); NRBC Flagged by Analyzer 0 % (0-5); Neutrophil # 5.21 X10^3/uL (2.7-7.7); Neutrophil % 55.2 % (47-70); Platelet Count 186 K/mm3 (150-450); RBC Distribution Width CV 13.4 % (11.6-14.6); RBC Distribution Width SD 46.4 fl (35.1-43.9); Red Blood Count 5.06 M/mm3 (4.6-6.2); White Blood Count 9.4 K/mm3 (4.4-11.0)
[2021-12-01 16:52] LABS: Hemoglobin A1c 5.3 % (3.8-5.6)
[2021-12-01 16:55] LABS: AST(SGOT) 25 U/L (15-37); Alanine Aminotransfer ALT/SGPT 37 U/L (16-61); Albumin, Serum 4.2 g/dL (3.2-5.0); Alkaline Phosphatase 96 U/L (45-117); Anion Gap 6 (5-15); BUN 15 mg/dL (7-18); BUN/Creat Ratio 15.4 RATIO (10-20); Calcium,Total 9.5 mg/dL (8.5-10.1); Chloride 105 mmol/L (98-107); Cholesterol 207 mg/dL (200); Creatinine, Serum 0.97 mg/dL (0.70-1.30); EST Glomerular Filtration Rate 90 mL/min (>60); Est Glom Filt Rate - Afr Amer 108 mL/min (>60); Glucose 96 mg/dL (74-106); High Density Lipoprotein 46 mg/dL; Potassium 4.3 mmol/L (3.5-5.1); Protein, Total 8.2 g/dL (6.4-8.2); Sodium Level 138 mmol/L (136-145); Thyroid Stim Hormone (TSH) 1.82 uIU/mL (0.358-3.74); Triglycerides 153 mg/dL; Very Low Density Lipoprotein 31 mg/dL (5-40)
== END 2021-12-01 23:59 | disposition home or self-care (01) ==
LOC: BIMLAB 14:52
PROVIDERS: PCP Nurse Practitioner Family; Referring Provider Nurse Practitioner Family; Visit Provider Nurse Practitioner Family
DX: Z00.00 Encounter for general adult medical examination without abnormal findings (principal)
CPT/HCPCS: 36415; 80053; 80061; 83036; 84443; 85025

== ENCOUNTER → 2022-01-08 | Outpatient (CLI) | payer OTHER, MEDICAID, SELFPAY ==
[2022-01-08 15:17] LABS: Red Blood Cells-Urine 0 SEEN /hpf (0-5); White Blood Cells 0 SEEN /hpf (0-5)
[2022-01-08 16:49] LABS: Color, Urine Yellow (Yellow); Glucose, Dipstick Normal (Normal); Ketone-Dipstick Negative (Negative); Leukocyte Esterase-Dipstick Negative /ul (Negative); Nitrite-Dipstick Negative (Negative); Occult Blood-Urine Negative /ul (Negative); Protein-Dipstick Negative (Negative); Urine Bilirubin Dipstick Negative (Negative); Urine Clarity Clear (Clear); Urine Urobilinogen 1 mg/dl (Normal)
[2022-01-08 17:09] LABS: Bacteria RARE /hpf (None Seen); Mucous, Urine 1+ /hpf (<or=2+); Squamous Epithelial Cells - UA 0-5 SEEN /hpf (0-5)
[2022-01-08 20:15] LABS: Chlamydia Trachomatis by PCR Negative (Negative); Neisserai gonorrhoeae by PCR Negative (Negative); Probe Check PASS; Sample Adequacy Control PASS; Specimen Processing Control PASS
== END | disposition home or self-care (01) ==
PROVIDERS: PCP Nurse Practitioner Family; Referring Provider Nurse Practitioner Family; Visit Provider Nurse Practitioner Family
DX: N45.1 Epididymitis (principal)
CPT/HCPCS: 81001; 87086; 87491; 87591

== ENCOUNTER → 2022-11-05 | Outpatient (CLI) | payer MEDICAID, OTHER, SELFPAY ==
--- NOTE | 2022-11-05 09:39 | RAD_ITS ---
STUDY: X-RAY - PELVIS AND RIGHT HIP REASON FOR EXAM: Male, 42 years old. right hip pain TECHNIQUE: 3 views of the pelvis and hip. COMPARISON: None. FINDINGS: There is a non-specific bowel gas pattern. Normal visualized soft tissue structures. Normal bilateral iliac wings, sacroiliac joints and visualized sacrum. Normal bilateral superior and inferior pubic rami. Normal pubic symphysis. Normal bilateral ischial tuberosities. Normal visualized femoral head. Normal acetabulum. Normal hip joint. RAD/HIP, UNI W/ Pelvis 2-3 Views IMPRESSION: Normal x-ray examination of the pelvis and hip. Electronically Signed: Darnell Levy MD at 17:32 EDT ,
== END | disposition home or self-care (01) ==
LOC: MTRAD 09:39
PROVIDERS: PCP Nurse Practitioner Family; Referring Provider Nurse Practitioner Family; Visit Provider Nurse Practitioner Family
DX: M25.551 Pain in right hip (principal)
CPT/HCPCS: 73502

== ENCOUNTER → 2022-11-30 | Outpatient (CLI) | payer OTHER, MEDICAID, SELFPAY ==
[2022-11-30 12:45] LABS: Basophil# 0.04 X10^3/uL; Basophil% 0.6 % (0-1); Eosinophil# 0.41 X10^3/uL; Eosinophils% 5.8 % (0-5); Hematocrit 46.8 % (40-54); Hemoglobin 15.2 g/dL (13.0-16.5); Lymphocyte % 26.7 % (19-41); Mean Corp Hgb Conc 32.5 g/dL (32-36); Mean Corpuscular Hgb 30.6 pg (27.0-32.0); Mean Corpuscular Volume 94.4 fL (80-94); Mean Platelet Vol. 12.4 fl (6.2-12.0); Monocyte# 0.76 X10^3/uL; Monocyte% 10.7 % (0-10); NRBC Flagged by Analyzer 0 % (0-5); Neutrophil # 3.97 X10^3/uL (2.7-7.7); Neutrophil % 55.8 % (47-70); Platelet Count 171 K/mm3 (150-450); RBC Distribution Width CV 13.5 % (11.6-14.6); RBC Distribution Width SD 46.8 fl (35.1-43.9); Red Blood Count 4.96 M/mm3 (4.6-6.2); White Blood Count 7.1 K/mm3 (4.4-11.0)
[2022-11-30 13:08] LABS: Hemoglobin A1c 5.3 % (3.8-5.6)
[2022-11-30 13:18] LABS: Vitamin B12 1085 pg/mL (211-911); Vitamin D,25 Hydroxy 30.6 ng/mL
[2022-11-30 13:33] LABS: ALB/GLOB Ratio 1.1 RATIO (0.9-2.4); AST(SGOT) 19 U/L (15-37); Alanine Aminotransfer ALT/SGPT 32 U/L (16-61); Albumin, Serum 4.1 g/dL (3.2-5.0); Alkaline Phosphatase 97 U/L (45-117); Anion Gap 3 (5-15); BUN 10 mg/dL (7-18); BUN/Creat Ratio 11.4 RATIO (10-20); Calcium,Total 9.4 mg/dL (8.5-10.1); Chloride 108 mmol/L (98-107); Cholesterol 204 mg/dL (200); Creatinine, Serum 0.88 mg/dL (0.70-1.30); EST Glomerular Filtration Rate 101 mL/min (>60); Est Glom Filt Rate - Afr Amer 122 mL/min (>60); Ferritin 320 ng/mL (26-388); Globulin 3.7 g/dL (2.2-4.2); Glucose 98 mg/dL (74-106); High Density Lipoprotein 47 mg/dL; Iron 98 ug/dL (65-175); Iron Binding Capacity,Total 351 ug/dL (250-450); PERCENT IRON SATURATION 27.9 % (15.0-55.0); Potassium 4.1 mmol/L (3.5-5.1); Protein, Total 7.8 g/dL (6.4-8.2); Sodium Level 137 mmol/L (136-145); Thyroid Stim Hormone (TSH) 1.46 uIU/mL (0.358-3.74); Triglycerides 149 mg/dL; Very Low Density Lipoprotein 30 mg/dL (5-40)
[2022-12-04 18:07] LABS: Testosterone, % Free 1.75 % (1.50-4.20); Testosterone, Free 5.43 ng/dL (5.00-21.00); Testosterone, Total 310 ng/dL (264-916)
== END | disposition home or self-care (01) ==
LOC: BIMLAB 08:32
PROVIDERS: PCP Nurse Practitioner Family; Referring Provider Nurse Practitioner Family; Visit Provider Nurse Practitioner Family
DX: Z00.00 Encounter for general adult medical examination without abnormal findings (principal); E29.1 Testicular hypofunction; E56.9 Vitamin deficiency, unspecified; D50.9 Iron deficiency anemia, unspecified
CPT/HCPCS: 36415; 80053; 80061; 82306; 82607; 82728; 83036; 83540; 83550; 84402; 84403; 84443; 85025

== ENCOUNTER 2023-01-20 07:43 | Day surgery (SDC) | payer OTHER, MEDICAID, SELFPAY ==
--- NOTE | 2023-01-20 | GASB_PTH ---
PATIENT: BRIDGETT CASE LOC: EN U#:[id number] AGE/SX: 42/M ROOM: RE01/20/[address]: Dr. Long Maria MD : 1980 BED: DIS: 01/20/2023 SPEC #: [id number] RECD: 01/20/23 10:50 STATUS: ROBERTA SAMUEL #: [id number] STEPHEN: 01/20/23 00:[address]: Long Maria DEPT: SURGICAL PATHOLOGY RECD BY: Isiah Madden ENTERED: 01/20/23 10:50 SP TYPE: Gastric Bx OTHR DR: Terrance Brown, COOK DESSERT-C Tissues: Gastric mucous membrane Procedures: Surgery Specimen Level IV HEADER OPERATION: Colonoscopy, EGD ([facility]) PRE-OP DIAGNOSIS: Heartburn, GERD, family history colon cancer TISSUE SUBMITTED: Distal gastric pouch biopsy for histology and H. pylori MICROSCOPIC DIAGNOSIS Distal gastric pouch, biopsy: Mild gastritis. See microscopic description and comment. SJ:geovani 01/21/2023 COMMENT The results of immunohistochemistry for Helicobacter pylori will be reported separately ([id number]). MICROSCOPIC DESCRIPTION Slides are reviewed. The specimen shows fragments of gastric mucosa with chronic inflammatory cell infiltrates in the lamina propria consisting of lymphocytes and plasma cells, consistent with mild chronic gastritis. GROSS DESCRIPTION Received in fixative is one container labeled with the patient's name and designated distal gastric pouch biopsy. The specimen consists of one irregular fragment of light peter soft tissue that measures 0.4 x 0.4 x 0.1 cm. The specimen is totally submitted in one cassette. / FIDE:geovani 01/20/2023 TC: CPT: 65797
[2023-01-20] MEDS: Lactated Ringers 1,000 ML 15 ML IV (07:55)
[2023-01-20 08:23] VITALS: BP 119/78; PULSE 69; RESP 16; TEMP 36.7; O2SAT 97; BMI 38.9
--- NOTE | 2023-01-20 09:00 | IMM_PTH ---
PATIENT: BRIDGETT CASE LOC: EN U#:[id number] AGE/SX: 42/M ROOM: RE01/20/[address]: Dr. Long Maria MD : 1980 BED: DIS: 01/20/2023 SPEC #: [id number] RECD: 01/20/23 12:48 STATUS: ROBERTA REQ #: [id number] STEPHEN: 01/20/23 09:[address]: Long Maria DEPT: IMMUNOHISTOCHEMISTRY RECD BY: Nara Gould ENTERED: 01/20/23 12:49 SP TYPE: IMMUNO OTHR DR: Terrance Brown, RAISIN SEPARATOR OPERATOR-C Tissues: Stomach, NOS Procedures: H Pylori (initial) PHYSICIAN & INSTITUTION [place] [address] SPECIMEN INFORMATION: Tissue Source: Distal gastric pouch Clinical Info: Heartburn, GERD Specimen Number: [id number] CPT code: 97883 METHODOLOGY: Deparaffinized sections of prefer/formalin-fixed tissue or PAP/DQ stained slides are incubated with monoclonal/polyclonal antibodies/oligonucleotide probes. Localization is made via biotin free immunoperoxidase method. Appropriate controls are performed and reacted as expected. Results on target cell population are indicated in the following table: RESULTS: ANTIBODY / CLONE RESULT H Pylori (polyclonal) negative These tests were developed and their performance characteristics determined by [facility]. They may not have been cleared or approved by the [place]. Food and Drug Administration. The FDA has determined that such clearance or approval is not necessary. The above immunohistochemical/dualISH markers are ordered and reviewed by the Pathologist. INTERPRETATION: Distal gastric pouch, biopsy: Negative for Helicobacter pylori organisms. FIDE:geovani 01/21/2023
--- NOTE | 2023-01-20 09:02 | HP.PCM_ITS ---
History and Physical Date of Admission: 01/20/23 Date of Service:? 12/15/22 MR#: [id number] Acct: [id number] Name:BRIDGETT JACOME Rep #: [id number] : 1980 ? ? Provider: Dr. Long Maria MD Age/Sex:? 42/M ? ? Location: [facility] Status: Signed Intake Vital Signs ? 12/16/2307:32 Height 6 ft 1 in Weight: 309 lb 4 oz BMI 40.8 BP 127/85 H Blood Pressure Location Rt brachial Position Sitting Respiration 18 Pulse 78 Pulse Source Monitor Temp 98.1 F Temp Source Temporal Pulse Oximetry (%) 97 Oxygen Delivery Method room air Intake Visit Reasons:?C-Scope Consult Family HX Chief Complaint: yearly check up Allergies No Known Allergies Allergy (Verified 12/15/22 08:35) Medications calcium citrate 200 mg (950 mg) tablet 200 mg PO TID 12/12/20 [History Confirmed 12/15/22] cholecalciferol (vitamin D3) 50 mcg (2,000 unit) capsule 50 mcg PO DAILY 12/12/20 [History Confirmed 12/15/22] ferrous sulfate 325 mg (65 mg iron) tablet (Feosol) 325 mg PO DAILY 12/12/20 [History Confirmed 12/15/22] mecobalamin (vitamin B12) 1,000 mcg chewable tablet 1,000 mcg PO DAILY 12/12/20 [History Confirmed 12/15/22] multivitamin (Multiple Vitamins tablet) 1 tab PO DAILY 01/05/21 [History Confirmed 12/15/22] vitamin A 2,400 mcg capsule 2,400 mcg PO DAILY 12/01/21 [History Confirmed 12/15/22] PFSH Medical History? Acute bronchitis, unspecified Acute frontal sinusitis Chronic back pain Chronic right hip pain Encounter for preventative adult health care examination Encounter for preventative adult health care examination History of MRSA infection Hypertension Hypogonadism in male Left epididymitis Vitamin deficiency Surgical History? H/O discectomy History of appendectomy Hx of gastric bypass L3/L4 Laminectomy Family History? Mother Mitral valve prolapseOther Colon cancer Social History? Smoking Status:? Never smoker alcohol intake:? never substance use type:? does not use HPI HPI HPI: Patient is a 42-year-old male who presents for need to schedule screening colonoscopy secondary to family history.? They are referred for surgical consultation from Terrance Brown NP.? Patient has not had prior colonoscopy.? Patient has no personal history of colon cancer, inflammatory bowel disease, or diverticulitis. They describe their bowel habits as normal.? They have approximately 1 bowel movement per every 2 days and spend roughly less than 10 minutes on the toilet without significant straining.? They have not noticed recent bleeding or dark stools.? They do not regularly take fiber supplements, but they do consume significant fiber in their regular diet. Patient has a rather remarkable family history of colon cancer in his father, grandfather, and paternal uncle.? He reports that his father was diagnosed in his mid 60s, but that his grandfather and uncle were both diagnosed in their 70s.? He notes that they all had surgery, but the other details regarding these diagnoses are unclear.? There is no other history of inflammatory bowel disease or diverticulitis familially- speaking? ? The patient's weight is not stable and he estimates that he has gained approximately 30 pounds over the last 2 years.? He attributes this weight gain to decreased activity on the account of back pain.? He has a history of Jason-en-Y gastric bypass in 2019 and lost a total of 140 pounds following that surgery so he is at a net of 110 pounds down from his heaviest weight. The patient is not prescribed anticoagulants/blood thinners. Relevant prior abdominal surgical history includes: Open appendectomy in addition to the Jason-en-Y gastric bypass noted from 2019 Patient does also have a significant history of GERD/heartburn.? He states that he experiences an achy abdominal discomfort shortly after taking his vitamins, but reports that this is better now.? He reports that this pain occurs in his upper abdomen.? He also notes that sometimes he will have frequent nighttime awakenings with pain and acid.? He currently uses Tums and Nexium only as needed.? He denies any coughing up of blood.? He denies any significant or routine use of NSAIDs. Exam Const General: cooperative, healthy appearing, comfortable and no acute distress Orientation: alert, awake and oriented x3 Resp Effort & Inspection: normal respiratory effort GI Other: Obese, well-healed port site incisions as well as a right lower quadrant transverse incision.? No evidence of hernia.? Nontender to palpation x4 quadrants, but mild tenderness with palpation of the epigastric area.? No hepatosplenomegaly Assessment and Plan Assessment and Plan (1) Family history of colon cancer: ?Status:?Acute ?Comment: This is a 42-year-old male who presents for evaluation and possible screening colonoscopy given extensive family history of colon cancer in father, grandfather, and paternal uncle.? Overall he denies any current symptoms that are alarming for his own GI habits, but given his reports of epigastric abdominal discomfort and nighttime awakenings with acid reflux, I believe it is reasonable to pursue a diagnostic EGD and then given a MAC sedation for this procedure and the fact that he is within 2 years of the recommended age for starting colon screening, believe that it would be reasonable to perform a concurrent colonoscopy. ?Plan: Plan will be to complete colonoscopy on first mutually agreeable date under local MAC.? Pre-procedure prep (2-day) discussed and paper instructions provided.? Patient is also made aware that he will need to have a medical delivery driver with him the day of the procedure. (2) Heartburn symptom: ?Status:?Acute ?Comment: Patient describes rather frequent heartburn (multiple times per week) which seems to be fluctuating in intensity.? He is status post gastric bypass 4 years ago and has not had a subsequent EGD.? Fortunately he has no history of tobacco use or excessive NSAID use.? Still, given the persistence of his symptoms and his altered anatomy, I find it reasonable to pursue a diagnostic esophagogastroduodenoscopy.? I have encouraged him to begin routine use of his PPI which he was previously taking as needed. ?Plan: ? Diagnostic EGD under local MAC (3) GERD (gastroesophageal reflux disease): ?Status:?Acute ?Comment: Patient remarks of frequent nighttime awakenings?sometimes as often as once nightly certain weeks.? Given his reports of heartburn symptoms as well, recommend diagnostic EGD as above ?Plan: Diagnostic EGD as above I have examined the patient and the H&P has been reviewed. There are no clinical changes since date of exam. Patient confirms that he completed his prep successfully for today's procedure and that his output is now clear. Neither he nor his have any questions about our planned endoscopy session. Therefore we will proceed to the endoscopy suite for diagnostic EGD and screening colonoscopy as discussed above.
[2023-01-20 09:55] VITALS: BP 107/60; BP 119/78; PULSE 76; RESP 16; O2SAT 99
[2023-01-20 10:00] VITALS: BP 111/78; BP 119/78; PULSE 75; RESP 16; O2SAT 98
[2023-01-20 10:05] VITALS: BP 119/78; BP 98/78; PULSE 77; RESP 16; O2SAT 98
[2023-01-20 10:09] VITALS: BP 109/66; BP 119/78; PULSE 75; RESP 16; TEMP 36.5; O2SAT 97
--- NOTE | 2023-01-20 10:13 | OP.EGD_ITS ---
Patient Name: Ankit Delvalle Procedure Date: 01/20/2023 9:05 AM Date of : 1980 Age: 42 Procedure: Upper GI endoscopy Indications: Suspected reflux esophagitis, Status post Jason-en-Y Providers: Long Maria MD Referring MD: Long Maria MD Medicines: See the Anesthesia note for documentation of the administered medications Patient Profile: Refer to note in patient chart for documentation of history and physical. Patient has symptoms. Complications: No immediate complications. Estimated blood loss: Minimal. Procedure: Pre-Anesthesia Assessment: - The heart rate, respiratory rate, oxygen saturations, blood pressure, adequacy of pulmonary ventilation, and response to care were monitored throughout the procedure. After obtaining informed consent, the endoscope was passed under direct vision. Throughout the procedure, the patient's blood pressure, pulse, and oxygen saturations were monitored continuously. The was introduced through the mouth, and advanced to the second part of duodenum. The upper GI endoscopy was accomplished without difficulty. The patient tolerated the procedure well. Scope In: 9:12:17 AM Scope Out: 9:22:31 AM Total Procedure Duration Time 0 hours 10 minutes 14 seconds Findings: The examined jejunum was normal. No biopsies or other specimens were collected for this exam. Marginal ulcer of Gastrojejunostomy, No biopsies or other specimens were collected for this exam. Localized mildly erythematous mucosa without bleeding was found in the gastric body. Biopsies were taken with a cold forceps for histology. Estimated blood loss was minimal. A medium-sized hiatal hernia was present. No biopsies or other specimens were collected for this exam. The exam was otherwise without abnormality. The Z-line was regular and was found 43 cm from the incisors. No biopsies or other specimens were collected for this exam. Impression: - Normal examined jejunum. No specimens collected. - Erythematous mucosa in the gastric body. Biopsied. - Medium-sized hiatal hernia. No specimens collected. - The examination was otherwise normal. - Z-line regular, 43 cm from the incisors. No specimens collected. Recommendation: - Discharge patient to home (via wheelchair). - Resume previous diet today. - Use Protonix (pantoprazole) 40 mg PO daily today. - Use sucralfate tablets 1 gram PO BID today. - No aspirin, ibuprofen, naproxen, or other non-steroidal anti-inflammatory drugs for 2 weeks. Procedure Code(s): --- Professional --- 29535, Esophagogastroduodenoscopy, flexible, transoral; with biopsy, single or multiple Diagnosis Code(s): --- Professional --- K31.89, Other diseases of stomach and duodenum K44.9, Diaphragmatic hernia without obstruction or gangrene Z98.0, Intestinal bypass and anastomosis status CPT copyright 2017 [employer]. All rights reserved. The codes documented in this report are preliminary and upon alliances consultant review may be revised to meet current compliance requirements. Long Maria MD 01/20/2023 10:12:33 AM This report has been signed electronically. Number of Addenda: 0 Note Initiated On: 01/20/2023 9:05 AM
--- NOTE | 2023-01-20 10:14 | OP.CCLET_ITS ---
01/20/2023 Terrance Brown NP [address] [place] [address] [place] [address] Re : Upper GI endoscopy procedure for Ankit Delvalle Dear Mr. Brown This procedure was performed on January. My impressions and recommendations are as follows: Impressions : - Normal examined jejunum. No specimens collected. - Erythematous mucosa in the gastric body. Biopsied. - Medium-sized hiatal hernia. No specimens collected. - The examination was otherwise normal. - Z-line regular, 43 cm from the incisors. No specimens collected. Recommendations : - Discharge patient to home (via wheelchair). - Resume previous diet today. - Use Protonix (pantoprazole) 40 mg PO daily today. - Use sucralfate tablets 1 gram PO BID today. - No aspirin, ibuprofen, naproxen, or other non-steroidal anti-inflammatory drugs for 2 weeks. My findings are described in the full procedure note, which is enclosed. If I can be of further assistance, please feel free to contact me at Doctor phone number(s): , Work: . Sincerely, Long Maria MD 01/20/2023 10:12:33 AM This report has been signed electronically.
--- NOTE | 2023-01-20 10:20 | OP.COLON_ITS ---
Patient Name: Ankit Delvalle Procedure Date: 01/20/2023 9:22 AM Date of : 1980 Age: 42 Procedure: Colonoscopy Indications: Screening in patient at increased risk: Family history of 1st-degree relative with colorectal cancer, Screening patient at increased risk: Family history of colorectal cancer in multiple 1st-degree relatives Providers: Long Maria MD Referring MD: Long Maria MD Medicines: See the Anesthesia note for documentation of the administered medications Patient Profile: Refer to note in patient chart for documentation of history and physical. Patient has symptoms. Last Colonoscopy: none. The patient's first colonoscopy is today. Complications: No immediate complications. Estimated blood loss: None. Procedure: Pre-Anesthesia Assessment: - The heart rate, respiratory rate, oxygen saturations, blood pressure, adequacy of pulmonary ventilation, and response to care were monitored throughout the procedure. - The heart rate, respiratory rate, oxygen saturations, blood pressure, adequacy of pulmonary ventilation, and response to care were monitored throughout the procedure. After I obtained informed consent, the scope was passed under direct vision. Throughout the procedure, the patient's blood pressure, pulse, and oxygen saturations were monitored continuously. The was introduced through the anus and advanced to the cecum, identified by the ileocecal valve. The colonoscopy was performed without difficulty. The patient tolerated the procedure well. The quality of the bowel preparation was adequate to identify polyps. Scope In: 9:24:29 AM Scope Withdrawal Time 0 hours 15 minutes 30 seconds Scope Out: 9:49:08 AM Total Procedure Duration Time 0 hours 24 minutes 39 seconds Findings: Hemorrhoids were found on perianal exam. The entire examined colon appeared normal. The mucosa vascular pattern in the rectum was diffusely increased. No biopsies or other specimens were collected for this exam. Impression: - Hemorrhoids found on perianal exam. - The entire examined colon is normal. - Increased mucosa vascular pattern in the rectum. No specimens collected. Recommendation: - Discharge patient to home (via wheelchair). - High fiber diet today. - Continue present medications. - Repeat colonoscopy in 10 years for screening purposes. Procedure Code(s): --- Professional --- G0105, Colorectal cancer screening; colonoscopy on individual at high risk Diagnosis Code(s): --- Professional --- K64.9, Unspecified hemorrhoids Z80.0, Family history of malignant neoplasm of digestive organs CPT copyright 2017 [employer]. All rights reserved. The codes documented in this report are preliminary and upon project director review may be revised to meet current compliance requirements. Long Maria MD 01/20/2023 10:20:22 AM This report has been signed electronically. Number of Addenda: 0 Note Initiated On: 01/20/2023 9:22 AM
--- NOTE | 2023-01-20 10:21 | OP.CCLET_ITS ---
01/20/2023 Terrance Brown NP [address] [place] [address] [place] [address] Re : Colonoscopy procedure for Ankit Stair Dear Mr. Brown This procedure was performed on January. My impressions and recommendations are as follows: Impressions : - Hemorrhoids found on perianal exam. - The entire examined colon is normal. - Increased mucosa vascular pattern in the rectum. No specimens collected. Recommendations : - Discharge patient to home (via wheelchair). - High fiber diet today. - Continue present medications. - Repeat colonoscopy in 10 years for screening purposes. My findings are described in the full procedure note, which is enclosed. If I can be of further assistance, please feel free to contact me at Doctor phone number(s): , Work: . Sincerely, Logn Maria MD 01/20/2023 10:20:22 AM This report has been signed electronically.
[2023-01-20 10:30] VITALS: BP 119/78
== END 2023-01-20 10:50 | disposition home or self-care (01) ==
LOC: EN 07:44 → AC 07:45
PROVIDERS: PCP Nurse Practitioner Family; Referring Provider Surgery; Visit Provider Surgery
PROC: 0DJD8ZZ Inspection of Lower Intestinal Tract, Via Natural or Artificial Opening Endoscopic (ICD-10-PCS; CPT 45378; principal; 2023-01-20 08:55)
DX: Z12.11 Encounter for screening for malignant neoplasm of colon (principal); K44.9 Diaphragmatic hernia without obstruction or gangrene; Z80.0 Family history of malignant neoplasm of digestive organs; Z98.84 Bariatric surgery status; K64.9 Unspecified hemorrhoids; K21.9 Gastro-esophageal reflux disease without esophagitis; K29.70 Gastritis, unspecified, without bleeding; I10 Essential (primary) hypertension; Z90.49 Acquired absence of other specified parts of digestive tract
CPT/HCPCS: 45378; 43239; 88305; 88342; J7120; J2405

== ENCOUNTER 2023-10-13 18:21 | Emergency (ER) | payer OTHER, MEDICAID, SELFPAY ==
[2023-10-13 18:22] VITALS: BP 163/99; PULSE 86; RESP 18; TEMP 36.4; O2SAT 98; BMI 39.6
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
[2023-10-13] MEDS: HYDROcodone Bitartrate/Apap 5/325 Tablet PO (21:16)
[2023-10-13] MEDS: cycloBENZAPRine HCl 10 MG Tablet PO (21:17)
[2023-10-13 21:20] VITALS: BP 146/74; PULSE 78; RESP 16; TEMP 36.8; O2SAT 99
[2023-10-13 21:22] VITALS: BP 146/74; PULSE 78; RESP 16; O2SAT 99
== END 2023-10-13 21:22 | disposition home or self-care (01) ==
PROVIDERS: Emergency Provider Emergency Medicine; PCP Nurse Practitioner Family; Visit Provider Emergency Medicine
DX: S39.012A Strain of muscle, fascia and tendon of lower back, initial encounter (principal); V89.2XXA Person injured in unspecified motor-vehicle accident, traffic, initial encounter; I10 Essential (primary) hypertension; Z79.899 Other long term (current) drug therapy
CPT/HCPCS: 71045; 72070; 99283

== ENCOUNTER → 2024-03-26 | Outpatient (CLI) | payer OTHER, SELFPAY | END | disposition home or self-care (01) | LOC: SL 10:22 | PROVIDERS: Visit Provider Nurse Practitioner Acute Care | DX: G47.33 Obstructive sleep apnea (adult) (pediatric) (principal) ==

== ENCOUNTER → 2024-07-10 | Outpatient (CLI) | payer OTHER, SELFPAY | END | disposition home or self-care (01) | LOC: VSLAB 08:17 | PROVIDERS: PCP Nurse Practitioner Family; Visit Provider Nurse Practitioner Family | DX: Z00.00 Encounter for general adult medical examination without abnormal findings (principal) ==

== ENCOUNTER → 2024-07-11 | Outpatient (CLI) | payer OTHER, SELFPAY ==
[2024-07-11 12:50] LABS: Absolute Lymphocyte Count 2.12 X10^3/uL (0.83-4.51); Absolute Neutrophil Count 5.1 X10^3/uL (2.0-7.7); Basophil# 0.05 X10^3/uL; Basophil% 0.6 % (0-1); Eosinophil# 0.32 X10^3/uL; Eosinophils% 3.9 % (0-5); Hematocrit 46.9 % (40-54); Hemoglobin 15.5 g/dL (13.0-16.5); Lymphocyte # 2.12 X10^3/ul (0.83-4.51); Lymphocyte % 25.8 % (19-41); Mean Corpuscular Hgb 30.8 pg (27.0-32.0); Mean Corpuscular Volume 93.1 fL (80-94); Mean Platelet Vol. 11.7 fl (6.2-12.0); Monocyte# 0.63 X10^3/uL; Monocyte% 7.7 % (0-10); NRBC Flagged by Analyzer 0 % (0-5); Neutrophil # 5.07 X10^3/uL (2.7-7.7); Neutrophil % 61.6 % (47-70); Platelet Count 186 K/mm3 (150-450); RBC Distribution Width CV 13.4 % (11.6-14.6); RBC Distribution Width SD 45.6 fl (35.1-43.9); Red Blood Count 5.04 M/mm3 (4.6-6.2); White Blood Count 8.2 K/mm3 (4.4-11.0)
[2024-07-11 13:09] LABS: Hemoglobin A1c 5.6 % (3.8-5.6)
[2024-07-11 13:44] LABS: Vitamin B12 1443 pg/mL (211-911); Vitamin D,25 Hydroxy 29.2 ng/mL
[2024-07-11 14:34] LABS: AST(SGOT) 18 U/L (15-37); Alanine Aminotransfer ALT/SGPT 32 U/L (16-61); Albumin, Serum 3.8 g/dL (3.2-5.0); Alkaline Phosphatase 84 U/L (45-117); Anion Gap 5 (5-15); BUN 11 mg/dL (7-18); BUN/Creat Ratio 12.7 RATIO (10-20); Calcium,Total 8.9 mg/dL (8.5-10.1); Chloride 109 mmol/L (98-107); Cholesterol 169 mg/dL (200); Creatinine, Serum 0.86 mg/dL (0.70-1.30); EST Glomerular Filtration Rate 102 mL/min (>60); Est Glom Filt Rate - Afr Amer 123 mL/min (>60); Globulin 3.7 g/dL (2.2-4.2); Glucose 87 mg/dL (74-106); High Density Lipoprotein 53 mg/dL; PSA,Total - Annual Screen 0.34 ng/mL (0.00-4.00); Protein, Total 7.5 g/dL (6.4-8.2); Sodium Level 139 mmol/L (136-145); Triglycerides 137 mg/dL; Very Low Density Lipoprotein 27 mg/dL (5-40)
[2024-07-19 09:10] LABS: Testosterone, % Free 3.51 % (1.50-4.20); Testosterone, Free 11.41 ng/dL (5.00-21.00); Testosterone, Total 325 ng/dL (264-916)
== END | disposition home or self-care (01) ==
LOC: VSLAB 09:49
PROVIDERS: PCP Nurse Practitioner Family; Visit Provider Nurse Practitioner Family
DX: R53.83 Other fatigue (principal); Z12.5 Encounter for screening for malignant neoplasm of prostate; Z13.1 Encounter for screening for diabetes mellitus
CPT/HCPCS: 36415; 80053; 80061; 82306; 82607; 83036; 84153; 84402; 84403; 84443; 85025; G0103

== ENCOUNTER → 2024-10-10 | Outpatient (CLI) | payer OTHER, SELFPAY ==
--- NOTE | 2024-10-10 10:39 | VDLE_ITS ---
Reason For Study Reason For Study: RLE PAin RIGHT LEFT GSV is normal. CFV is compressible, spontaneous, phasic, competent, CFV is compressible, spontaneous, phasic, competent and demonstrates normal augmentation. and demonstrates normal augmentation. FV is compressible, spontaneous, phasic, competent and demonstrates normal augmentation. POP V is compressible, spontaneous, phasic, competent and demonstrates normal augmentation. T/P Trunk is compressible. PTV is compressible. RT PerV is compressible. Procedure This is a venous duplex using B-mode, color flow and spectral Doppler. Exam performed in department. The exam was diagnostic. A preliminary report was called and/or faxed to Shy Soriano / Terrance Brown. VL/Venous Duplex US, Unilateral Interpretation Summary Deep veins of the right lower extremity are patent and compressible segmentally . There is no evidence of right lower extremity deep vein thrombosis. The right great saphenous vein appears patent a nd compressible segmentally. Ordering Physician: Terrance Brown Referring Physician: Terrance Brown Performed By: Magdi Fernandes RVT
== END | disposition home or self-care (01) ==
LOC: CVS 10:37
PROVIDERS: PCP Nurse Practitioner Family; Referring Provider Nurse Practitioner Family; Visit Provider Nurse Practitioner Family
DX: R22.41 Localized swelling, mass and lump, right lower limb (principal); M79.604 Pain in right leg
CPT/HCPCS: 93971

== ENCOUNTER → 2024-11-12 | Outpatient (CLI) | payer OTHER, SELFPAY ==
--- NOTE | 2024-11-12 11:40 | RAD_ITS ---
EXAM: XR Lumbosacral Spine, 4 or 5 Views CLINICAL INDICATION: POSTLAMINECTOMY SYNDROME TECHNIQUE: Frontal, lateral and bilateral oblique views of the lumbar spine. COMPARISON: No relevant prior studies available. FINDINGS: VERTEBRAE: Mild endplate degenerative changes and disc disease of L4-S1. Normal alignment. No acute fracture or significant dynamic instability. SACRUM/COCCYX: Unremarkable as visualized. No acute fracture. DISC SPACES: No acute findings. No significant narrowing. SOFT TISSUES: Unremarkable. RAD/L/S Spine w Bend Min 6 Vw IMPRESSION: 1. No acute fracture or significant dynamic instability. 2. Degenerative changes as above. Reading Location: [facility]
== END | disposition home or self-care (01) ==
LOC: MTRAD 11:29
PROVIDERS: PCP Nurse Practitioner Family; Referring Provider Anesthesiology Pain Medicine; Visit Provider Anesthesiology Pain Medicine
DX: M96.1 Postlaminectomy syndrome, not elsewhere classified (principal)
CPT/HCPCS: 72114

== ENCOUNTER 2024-12-31 10:29 | Day surgery (SDC) | payer OTHER, SELFPAY ==
[2024-12-31] VITALS (9 sets, daily range): BP systolic 112–164; BP diastolic 73–87; PULSE 72–82; RESP 16; TEMP 36.1–36.9; O2SAT 96–98; BMI 38.4
[2024-12-31] MEDS: Lactated Ringers 1,000 ML 15 ML IV (11:00)
--- NOTE | 2024-12-31 11:11 | PRE.ANES_ITS ---
ASA Classification* ASA Classification ASA Classification: 3 Assessment & Plan Anesthesia* Anesthesia Assessment Anesthesia Assessment: Discussed sedation and/or anesthesia options, risks, benefits, and alternatives with patient/parents/legal guardian/POA. Questions invited. The patient/parents/legal guardian/POA seems to understand and agrees to proceed with anesthesia plan. Reviewed the physical assessment, medical history, allergy history and patient home medications list prior to surgery/procedure/anesthetic and documented any changes. Performed airway and anesthesia risk assessments. Anesthesia Type Anesthesia Type: MAC Anesthesia Focused Assessment* Temperature: 98.4 F Pulse Rate: 74 Blood Pressure: 142/87 Respiratory Rate: 16 Pulse Ox: 98 Airway Assessment Mouth opens: >3 cm Mallampati Score: II Focused Labs Anesthesia Preop lab: CBC WBC 8.2 K/mm3 (4.4-11.0) 07/11/24 09:50 07/11/24 RBC 5.04 M/mm3 (4.6-6.2) 07/11/24 09:50 07/11/24 Hgb 15.5 g/dL (13.0-16.5) 07/11/24 09:50 07/11/24 Hct 46.9 % (40-54) 07/11/24 09:50 07/11/24 Plt Count 186 K/mm3 (150-450) 07/11/24 09:50 07/11/24 CHEMISTRY Potassium 4.0 mmol/L (3.5-5.1) 07/11/24 09:50 07/11/24 Sodium 139 mmol/L (136-145) 07/11/24 09:50 07/11/24 Magnesium 2.3 mg/dL (1.6-2.6) 06/27/20 08:04 06/27/20 BUN 11 mg/dL (7-18) 07/11/24 09:50 07/11/24 Creatinine 0.86 mg/dL (0.70-1.30) 07/11/24 09:50 07/11/24 Glucose 87 mg/dL (74-106) 07/11/24 09:50 07/11/24 TSH 1.190 uIU/mL (0.358-3.740) 07/11/24 09:50 06/16 03/07 COAG Pre-Assessment Diagnosis/Proposed Procedure Planned Operative Procedure(s): Caudal Anesthesia History Anesthesia History - licensed nursing assistant: Anesthesia History - licensed nursing assistant Hx Hospitalization No 01/14/23 14:33 Any Problems With Anesthesia Yes: N,V 01/14/23 14:33 Cholinesterase deficiency No 01/14/23 14:33 You/Your Family Experience No 01/14/23 14:33 fever (hyperthermia) with Relationship Recent Exposure to Contagious No 12/31/24 10:50 Disease Does patient have nerve No 01/14/23 14:33 stimulator Patient instructed to have device shut off --Does patient have Pacemaker No 12/31/24 10:50 or ICD? When Was Last Pacemaker Check QUESTION #4 FULL TEXT: You/Your Family Experience fever (hyperthermia) with Anesthesia Last Oral Intake Last Oral intake: Last Oral Intake NPO since 20:00 12/31/24 10:50 Meds taken in AM with sips of No 12/31/24 10:50 water? Meds patient instructed to take am of surgery PONV PONV - licensed nursing assistant: PONV - licensed nursing assistant Female HX of Motion Sickness HX of N/V After Surgery Non-Smoker Duration of Surgery greater than 60 minutes Number of Risk Factors PONV Score Height & Weight Height & Weight: Anesthesia: Height & Weight Height 6 ft 1 in 12/31/24 10:50 Weight: 132 kg 12/31/24 10:50 Body Mass Index (BMI) 38.4 12/31/24 10:50 Respiratory Assessment Respiratory Assessment - licensed nursing assistant: Respiratory Tract Infection Hx - licensed nursing assistant Hx Respiratory Tract Infection No 01/14/23 14:33 STOP Sleep Apnea STOP Sleep Apnea - licensed nursing assistant: STOP Sleep Apnea - licensed nursing assistant Hx Hypertension No 01/14/23 14:33 Hx Sleep Apnea Yes 01/20/23 10:09 CPAP No 01/14/23 14:33 BIPAP Yes 01/14/23 14:33 Do you snore loudly (louder than talking or can be heard Do you often feel tired/ fatigued/ sleepy during daytime? Has anyone observed you stop breathing during sleep? STOP Results QUESTION #5 FULL TEXT : Do you snore loudly (louder than talking or can be heard through closed doors)? 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 Specify any problems Hx of Preganancy in last 3 Months Nurse Filling Out Transfusion & Questions: Date: Time: Patient unable to answer at this time (ie. confused, unrespo /Reproduction History /Reproductive History - licensed nursing assistant: /Reproductive Hx- licensed nursing assistant Hx Now Gestational Age (in weeks): EDC: Hx Hx Para Hx Section SAB No 01/14/23 14:33 Active Medications Active Medications: Current Medications Generic Name Dose Route Start Last Admin Trade Name Freq PRN Reason Stop Dose Admin Lactated Ringer's 1,000 mls @ 15 mls/hr 12/31/24 10:45 12/31/24 11:00 IV 15 mls/hr .Q48H JOSAFAT Administration PFSH Medical History GI bleed BiPAP (biphasic positive airway pressure) dependence Sleep apnea Heartburn Non-smoker Shortness of breath on exertion History of stress test Cardiology follow-up encounter Chronic back pain Vitamin deficiency Hypogonadism in male Encounter for preventative adult health care examination Acute bronchitis, unspecified Acute frontal sinusitis Chronic right hip pain Left epididymitis Encounter for preventative adult health care examination History of MRSA infection Hypertension Home Medications ?Medication ?Instructions ?Recorded ?Last Taken ?Type cholecalciferol (vitamin D3) 50 50 mcg PO DAILY 12/30/24 History mcg (2,000 unit) capsule ferrous sulfate 325 mg (65 mg 325 mg PO DAILY 12/12/20 12/30/24 History iron) tablet (Feosol) mecobalamin (vitamin B12) 1,000 1,000 mcg PO DAILY Unknown History mcg chewable tablet vitamin A 2,400 mcg capsule 2,400 mcg PO DAILY 2 Unknown History pantoprazole 40 mg tablet,delayed 40 mg PO DAILY #28 t abs 05/02/23 12/30/24 Rx release cyclobenzaprine 10 mg tablet 10 mg PO TID PRN Muscle S pasm #20 10/13/23 Unknown Rx TABLETS doxycycline monohydrate 100 mg mg 10/13/23 Unknown His tory capsule hydrocodone-acetaminophen 5-325mg 1 tab PO Q4H PRN PRN Pain 2 days 10/13/23 Unknown Rx 5mg-325mg #10 TABLETS azithromycin 250 mg tablet See Rx Instructions PO .COM PLEX #6 10/08/24 Unknown Rx tabs benzonatate 200 mg capsule 200 mg PO TID PRN cough #20 caps 10/08/24 Unknown Rx Allergy/AdvReac Type Severity Reaction Status Date / Time NSAIDS (Non-Steroidal Allergy PT UNSURE Verified 12/31/24 10:49 Anti-Inflamma OF REACTION Family History Mother Mitral valve prolapse Other Colon cancer Surgical History History of esophagogastroduodenoscopy (EGD) History of repair of ACL Hx of tonsillectomy History of appendectomy Hx of gastric bypass L3/L4 Laminectomy H/O discectomy Social History Smoking Status: Never smoker alcohol intake: never substance use type: does not use Review of Systems (Anesthesia) ROS Narrative System reviewed and no additional complaints, except as documented.
--- NOTE | 2024-12-31 11:15 | RAD_ITS ---
PROCEDURE: FLUOR GUIDANCE FOR SPINE INJ 12/31/2024 REASON FOR EXAM: BLOCK, CAUDAL TECHNIQUE: Intraoperative imaging provided for caudal block. 7.3 seconds of fluoroscopy. 4.24 mGy. 2 images were submitted. COMPARISON: None FINDINGS: Intraoperative imaging provided for caudal block. RAD/Fluor Guidance for Spine Inj IMPRESSION: Intraoperative imaging provided for caudal block. Reading Location: [facility]--1
[2024-12-31] MEDS: Bupivacaine 0.25% 30 ML Vial (11:25)
[2024-12-31] MEDS: MethylPREDNISolone Acetate 80 MG/ML Vial (11:25)
[2024-12-31] MEDS: Lidocaine 1% (5 ml sdv) 5 ML Vial (11:25)
--- NOTE | 2024-12-31 11:27 | PCM.OPRPT ---
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 Risks and benefits of the procedure were explained. The patient understood and agreed to proceed. Informed consent was obtained. IV inserted per routine protocol. The patient was taken to the operating room and placed in the prone position with a pillow positioned underneath the abdomen. The lower back and tailbone area was prepped and draped in a sterile fashion using iodine x3. Under fluoroscopy guidance on a lateral view, the caudal space was identified. The skin and subcutaneous tissue was anesthetized with approximately 3 mL of 1% lidocaine using a 25-gauge regular needle. Under direct visualization with fluoroscopy, using a 22-gauge 3-1/2-inch spinal needle, the needle was advanced via the skin through the sacral hiatus. The tip of the needle was passed through the sacrococcygeal ligament and advanced to approximately S4 area. After negative aspiration of blood or CSF, a total of 3 mL of contrast was injected to confirm correct placement of the needle as well as cephalad spread. The spread was followed to approximately L5 area. After confirmation on AP as well as lateral view and repeated negative aspiration, a total of 15 mL of preservative-free 0.125% Marcaine with 80 mg of Depo-Medrol was injected easily. The needle was then removed intact. The patient experienced no sign or symptoms of intrathecal or intravascular injection. The patient experienced no paresthesia. The procedure was completed without any apparent difficulty or any complications. The patient appeared to tolerate it well. ASSESSMENT AND PLAN: This is a 44-year-old male with lumbosacral radiculopathy, postlaminectomy syndrome at the lumbar spine, lumbosacral spinal stenosis status post diagnostic/therapeutic caudal epidural steroid injection under fluoroscopic guidance, patient will continue his current medications, patient will follow in approximately 2 weeks for reevaluation. Surgical Findings: 0 Complications Complications: No Admit VTE Documentation VTE Present on Admission: No VTE Mechan Device Prophylaxis: None VTE Pharm Prophylaxis ordered?: No
[2024-12-31] MEDS: 0.9% Normal Saline (Pres. free 10 ML Vial (11:34)
--- NOTE | 2024-12-31 11:51 | PCM.POST.ANE ---
Anesthesia: Postop Eval I Current Vital Signs Temperature: 97 F Pulse Rate: 77 Blood Pressure: 122/81 Respiratory Rate: 16 Pulse Ox: 97 Oxygen Delivery Method: Room Air Assessment Airway patent: Yes Spontaneous unlabored respirations: Yes Mental status: Awake nausea: No Vomiting: No Anesthesia Complication: No Fluid Hydration Crystalloid volume administer (ml): 20 Total IV fluid infused: 20 Progress Note Anesthesia document: Postop Eval 1 completed: Yes
--- NOTE | 2024-12-31 11:57 | PCM.POSTANE2 ---
Anesthesia Postop Eval I Sum Postop Eval Completion status Anesthesia document: Postop Eval 1 completed: Yes Anesthesia Postop Eval I Summary Anesthesia Postop Eval I Summary: Anesthesia Postop Eval I: Assessment Summary Airway patent Yes 12/31/24 11:52 Spontaneous unlabored Yes 12/31/24 11:52 respirations Mental status Awake 12/31/24 11:52 nausea No 12/31/24 11:52 Vomiting No 12/31/24 11:52 Anesthesia Postop Eval I: Fluid Summary Crystalloid volume administer 20 12/31/24 11:52 (ml) Colloids volume administered ( ml) Blood Product volume administered (ml) Total IV fluid infused 20 12/31/24 11:52 Anesthesia Postop Eval I: Summary Notes Anesthesia Complication No 12/31/24 11:52 Anesthesia Complication Comment: Post-operative progress note Anesthesia: Postop Eval II Evaluation Mental status: Awake Pain Level: 1 nausea: No Vomiting: No
== END 2024-12-31 12:11 | disposition home or self-care (01) ==
LOC: SDC 10:31 → AC 10:37
PROVIDERS: PCP Nurse Practitioner Family; Referring Provider Anesthesiology Pain Medicine; Visit Provider Anesthesiology Pain Medicine
PROC: 3E0S3BZ Introduction of Anesthetic Agent into Epidural Space, Percutaneous Approach (ICD-10-PCS; CPT 62282; principal; 2024-12-31 12:10)
DX: M96.1 Postlaminectomy syndrome, not elsewhere classified (principal); M54.17 Radiculopathy, lumbosacral region; M48.07 Spinal stenosis, lumbosacral region
CPT/HCPCS: 62323; 01992; 64483; 77003; A4216

== ENCOUNTER → 2025-03-25 | Outpatient (CLI) | payer OTHER, SELFPAY ==
[2025-03-25 14:59] LABS: Hematocrit 52.5 % (40-54); Hemoglobin 17.2 g/dL (13.0-16.5); Immature Granulocytes Count 0.030 X10^3/uL (0.0-0.0); Mean Corp Hgb Conc 32.8 g/dL (32-36); Mean Corpuscular Volume 92.8 fL (80-94); Mean Platelet Vol. 12.2 fl (6.2-12.0); NRBC Flagged by Analyzer 0 % (0-5); Platelet Count 181 K/mm3 (150-450); RBC Distribution Width CV 14.3 % (11.6-14.6); RBC Distribution Width SD 49.5 fl (35.1-43.9); Red Blood Count 5.66 M/mm3 (4.6-6.2); White Blood Count 9.3 K/mm3 (4.4-11.0)
[2025-03-25 15:30] LABS: AST(SGOT) 43 U/L (<=37); Alanine Aminotransfer ALT/SGPT 34 U/L (<=46); Albumin, Serum 4.4 g/dL (3.5-5.0); Alkaline Phosphatase 71 U/L (40-129); Anion Gap 13 (5-15); BUN 11 mg/dL (4-19); BUN/Creat Ratio 10.9 RATIO (10-20); Calcium,Total 9.7 mg/dL (7.6-11.0); Carbon Dioxide 22.7 mmol/L (21.0-32.0); Chloride 101 mmol/L (98-108); Globulin 3.2 g/dL (2.2-4.2); Glucose 93 mg/dL (70-99); Potassium 4.5 mmol/L (3.3-5.1)
[2025-03-25 15:46] LABS: CRP < 3.00 mg/L (0.0-3.0); Ferritin 23 ng/mL (37-417); Iron 62 ug/dL (65-175); Iron Binding Capacity,Unsat 398 ug/dL (228-428); Vitamin B12 1730 pg/mL (180-914); Vitamin D,25 Hydroxy 48.1 ng/mL (30-100)
[2025-03-25 15:57] LABS: FOLATES,SERUM (FOLIC ACID) > 40.00 ng/mL (4.60-34.80)
[2025-03-25 16:23] LABS: Iron Binding Capacity,Total 460 ug/dL (250-450)
[2025-03-27 15:08] LABS: ANTINUCLEAR ANTIBODIES DIRECT Negative (Negative)
== END | disposition home or self-care (01) ==
LOC: VSLAB 10:51
PROVIDERS: PCP Nurse Practitioner Family; Visit Provider Nurse Practitioner Family
DX: M25.50 Pain in unspecified joint (principal); R41.840 Attention and concentration deficit; E66.9 Obesity, unspecified; Z92.29 Personal history of other drug therapy; R53.83 Other fatigue
CPT/HCPCS: 36415; 80053; 82306; 82607; 82728; 82746; 83036; 83540; 83550; 84402; 84403; 84439; 84443; 85025; 85652; 86038; 86140; 86431

== ENCOUNTER → 2025-04-29 | Outpatient (CLI) | payer OTHER, SELFPAY ==
[2025-05-02 10:08] LABS: Testosterone, % Free 2.63 % (1.50-4.20); Testosterone, Free 10.73 ng/dL (5.00-21.00)
== END | disposition home or self-care (01) ==
PROVIDERS: PCP Nurse Practitioner Family; Referring Provider Nurse Practitioner Family; Visit Provider Nurse Practitioner Family
DX: R89.1 Abnormal level of hormones in specimens from other organs, systems and tissues (principal); Z92.29 Personal history of other drug therapy
CPT/HCPCS: 36415; 84402; 84403

== ENCOUNTER → 2025-08-02 | Outpatient (CLI) | payer OTHER, SELFPAY ==
[2025-08-02 10:27] LABS: Hematocrit 52.6 % (40-54); Hemoglobin 17.4 g/dL (13.0-16.5); Immature Granulocytes Count 0.110 X10^3/uL (0.0-0.0); Mean Corp Hgb Conc 33.1 g/dL (32-36); Mean Corpuscular Volume 93.8 fL (80-94); Mean Platelet Vol. 11.4 fl (6.2-12.0); NRBC Flagged by Analyzer 0 % (0-5); Platelet Count 167 K/mm3 (150-450); RBC Distribution Width CV 14.6 % (11.6-14.6); RBC Distribution Width SD 50.9 fl (35.1-43.9); Red Blood Count 5.61 M/mm3 (4.6-6.2); White Blood Count 7.9 K/mm3 (4.4-11.0)
[2025-08-02 11:18] LABS: AST(SGOT) 30 U/L (<=37); Alanine Aminotransfer ALT/SGPT 36 U/L (<=46); Albumin, Serum 4.5 g/dL (3.5-5.0); Alkaline Phosphatase 67 U/L (40-129); Anion Gap 10 (5-15); BUN 15 mg/dL (4-19); BUN/Creat Ratio 15.6 RATIO (10-20); Calcium,Total 9.8 mg/dL (7.6-11.0); Carbon Dioxide 24.7 mmol/L (21.0-32.0); Chloride 103 mmol/L (98-108); Cholesterol 196 mg/dL (<=200); Globulin 3.1 g/dL (2.2-4.2); Glucose 96 mg/dL (70-99); Low Density Lipoprotein Calc. 122 mg/dL; Potassium 4.2 mmol/L (3.3-5.1); Triglycerides 122 mg/dL; Very Low Density Lipoprotein 24 mg/dL (5-40); cholesterol:hdl ratio screen 3.73
[2025-08-10 13:07] LABS: Testosterone, % Free 2.40 % (1.50-4.20); Testosterone, Free 11.59 ng/dL (5.00-21.00)
== END | disposition home or self-care (01) ==
LOC: LAB 09:27
PROVIDERS: PCP Nurse Practitioner Family; Referring Provider Nurse Practitioner Family; Visit Provider Nurse Practitioner Family
DX: Z13.220 Encounter for screening for lipoid disorders (principal); E29.1 Testicular hypofunction
CPT/HCPCS: 36415; 80053; 80061; 84402; 84403; 85025